=== PATIENT | male | born 2005 | race Caucasian/White ===

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

== ENCOUNTER 2023-11-19 17:33 | Emergency (ER) | payer BC ==
[~2023-11-19] VITALS: Ht 167.6 cm; Wt 99.1 kg
[~2023-11-19 17:33] MED LIST changes: +VERA40TA5 PO
[2023-11-19 17:36] VITALS: TEMP 99
[2023-11-19] MEDS: proCHLORperazine 10 MG/2 ml inj IM ONE (18:26)
[2023-11-19] MEDS: diphenhydrAMINE 25mg capsule PO ONE (18:26)
[2023-11-19] MEDS: ketorolac trometh. 30mg/ml inj. IM ONE (18:26)
[2023-11-19 19:05] VITALS: BP 131/86; PULSE 96; RESP 16; O2SAT 99
[2023-11-20] MEDS ORDERED: ONDA-245 PO (08:52)
== END 2023-11-19 19:06 | disposition home or self-care (01) ==
LOC: ER 17:33
DX: G43.909 Migraine, unspecified, not intractable, without status migrainosus (principal); J45.909 Unspecified asthma, uncomplicated; Z79.899 Other long term (current) drug therapy; Z79.1 Long term (current) use of non-steroidal anti-inflammatories (NSAID)
CPT/HCPCS: 70450; 96372; 99285; J0780; J1885; Q0163

== ENCOUNTER 2025-01-29 10:37 | Emergency (ER) | payer BC, MEDICAID ==
[~2025-01-29] VITALS: Ht 172.7 cm; Wt 101.6 kg
[~2025-01-29 10:37] MED LIST changes: +ONDA-245 PO
[2025-01-29 10:39] VITALS: BP 171/110; PULSE 118; RESP 16; TEMP 99; O2SAT 96
--- NOTE | 2025-01-29 10:57 | Physician Documentation ---
History of Present Illness ~ Chief Complaint: Flu Symptoms Stated Complaint: FLU SYMPTOMS Time Seen by MD: 10:45 OK to notify your PCP?: Yes Primary Medical Doctor: Neno De La Garza Source: patient Mode of Arrival: POV Exam Limitations: no limitations HPI 19-year-old male who reports body aches fever and chills over the past few days. No pre arrival treatment. He also states his body aches have aggravated his migraines and he has needed to take sumatriptan over the past two days. No fever, chills, chest pain, sob, abdominal pain, nausea, diarrhea. Medication Reconciliation Allergies: Coded Allergies: No Known Allergies (Unverified , 01/29/25) Scheduled Albuterol Sulfate (Ventolin Hfa), 1 PUFFS IH Q4H PRN SOB, (Reported) Albuterol Sulfate (Proventil Hfa), 2 PUFFS INH QID Albuterol Sulfate Nebs* (Proventil Nebs*), 2.5 MG IH Q4H Cyproheptadine HCl (Cyproheptadine HCl), HS, (Reported) Hydrocortisone Cream* (Hytone Cream*), 1 APPLIC TP BID Ibuprofen 100MG/5ML Susp* (Motrin 100 MG/5ML Susp.*), 13 ML PO TID Verapamil Hcl (Verapamil Hcl), 40 MG PO DAILY Scheduled PRN Guaifen/D-Methorphan Hb/K Cit (Sorbutuss Liquid), 5 ML PO Q4H PRN for cough Ondansetron 8mg ODT (Ondansetron Odt), 1 TAB PO TID PRN for nausea/vomiting Past Medical History Past Medical History: Migraine, Asthma Past Surgical History: no surgical history Alcohol Use: None Drug Use: none Lives with: Mother Lives In: Home Occupation: student, child Review of Systems All Other Systems at this time: Reviewed and Negative Physical Exam Vital Signs: Temperature: 99.0, Source: Temporal, Heart Rate: 118, Respiratory Rate: 16, BP: 171/110, Pulse Oximetry: 96, Weight: 101.600 Oxygen Flow Rate: 0 Physical Exam General Appearance: Alert, WD/WN. NAD. HEENT: NCAT, PERRL, EOMI. Posterior pharyngeal wall normal no erythema or exudates. Neck: Supple, trachea midline. No cervical lymphadenopathy. Cardiovascular: RRR. No m/r/g. Lungs: CTAB. Breathing unlabored Extremities: Normal inspection. No edema. Skin: Warm/dry, normal color Neurological: Alert and oriented x4, normal gait. Psychiatric: Affect congruent with mood. Progress Results/Orders Results/Orders Orders - GREGG PATRICK Covid19 Binax Poc Result Entry (01/29/25 10:53) Completed Orders - GREGG PATRICK Influenza Type A&B Rapid Test (01/29/25 10:53) Vital Signs 01/29/25 10:39 Temp 99.0 Pulse 118 Resp 16 B/P (MAP) 171/110 Pulse Ox 96 O2 Flow Rate 0 Laboratory Tests Test 01/29/25 11:06 Influenza Type A Antigen Negative Influenza Type B Antigen Negative SARS-CoV-2 Antigen (Rapid) Negative Medical Decision Making Differential Dx:Considerations: Include: CVA, Dehydration, Drug toxicity, Electrolyte imbalance, Influenza, Meningitis, Mycardial infarction, Pneumonia, Pneumonitis, Pulmonary embolus, Pyelonephritis, Respiratory failure, Sepsis, UTI, Viral Syndrome Departure Time of Disposition: 10:57 Disposition: 01 HOME / SELF CARE / HOMELESS Impression: Primary Impression: Viral infection Condition: Stable Discharge Instructions: Viral Illness Additional Instructions: Rest, fluids, Tylenol alternating Motrin as needed for body aches and fever Referrals: NO PRIMARY CARE PROVIDER (PCP) Education Educated: Patient Educated regarding: diagnosis, treatment, need for follow up Signature Scribe Signature: x Attestation: GREGG Regan Jan 29, 2025 10:57
[2025-01-29 11:36] LABS: INFLUENZA TYPE A ANTIGEN RAPID NEGATIVE (Negative); INFLUENZA TYPE B ANTIGEN RAPID NEGATIVE (Negative)
== END 2025-01-29 12:26 | disposition home or self-care (01) ==
LOC: ER 10:38
DX: B34.9 Viral infection, unspecified (principal); G43.909 Migraine, unspecified, not intractable, without status migrainosus; J45.909 Unspecified asthma, uncomplicated; Z20.822 Contact with and (suspected) exposure to COVID-19
CPT/HCPCS: 36415; 87804; 87811; 99283